=== PATIENT | male | born 1980 | race Caucasian/White ===

== ENCOUNTER 2020-10-10 12:50 | Emergency (ER) | payer OTHER ==
[2020-10-10 14:51] LABS: HEMOGLOBIN 14.6 gm/dl (14.0-17.5); RED BLOOD COUNT 4.63 M/UL (4.20-5.50); WHITE BLOOD COUNT 11.9 K/UL (4.5-11.0)
[2020-10-10 15:16] LABS: BUN/CREATININE RATIO 18 (0-10)
[2020-10-10] MEDS ORDERED: HYDROCODON-ACE1 EAC4 PO (16:16)
[2020-10-10] MEDS ORDERED: AUGMENTIN 875-1 EACH PO (16:16)
== END 2020-10-10 16:32 | disposition home or self-care (01) ==
LOC: ER1 12:50
PROVIDERS: Physician Assistant
DX: S09.90XA Unspecified injury of head, initial encounter (principal); R04.0 Epistaxis; R11.0 Nausea; W22.8XXA Striking against or struck by other objects, initial encounter
CPT/HCPCS: 70450; 70486; 80053; 85025; 96374; 96375; 99284; J2270; J2405